=== PATIENT | male | born 1990 | race Two or more races ===

== ENCOUNTER 2019-12-13 14:33 | Emergency (ER) | payer BC ==
[2019-12-13] MEDS ORDERED: IBUPROFEN 800 MG TABLET PO ONE (14:52)
--- NOTE | 2019-12-13 15:00 | ER Document Report ---
HPI - HPI Patient complains to provider of: Achilles tendon injury Time Seen by Provider: 12/13/19 14:47 Onset: Yesterday Onset/Duration: Sudden Quality of pain: Achy Pain Level: 3 Context: Patient states he was playing basketball yesterday and felt and heard a sudden pop in the area of his Achilles tendon. Patient is concerned about possible Achilles tendon injury. Exacerbated by: Standing, Movement, Walking Relieved by: Denies Similar symptoms previously: No Recently seen / treated by doctor: No - ROS ROS below otherwise negative: Yes Systems Reviewed and Negative: Yes All other systems reviewed and negative - NEURO Neurology: DENIES: Weakness - GASTROINTESTINAL Gastrointestinal: DENIES: Nausea - MUSCULOSKELETAL Musculoskeletal: REPORTS: Extremity pain. DENIES: Swelling - DERM Skin Color: Normal Skin Problems: None Past Medical History - General Information source: Patient - Social History Smoking Status: Never Smoker Frequency of alcohol use: Occasional Drug Abuse: None Occupation: dog trainer Family History: Reviewed & Not Pertinent - Medical History Medical History: Negative Surgical Hx: Negative Vertical Provider Document - CONSTITUTIONAL Agree With Documented VS: Yes Exam Limitations: No Limitations General Appearance: WD/WN, No Apparent Distress - HEENT HEENT: Atraumatic - NECK Neck: Normal Inspection, Supple. negative: Lymphadenopathy-Left, Lymphadenopathy-Right - RESPIRATORY Respiratory: Breath Sounds Normal, No Respiratory Distress - CARDIOVASCULAR Cardiovascular: Regular Rate, Regular Rhythm Pulses: Normal: Dorsalis pedis - MUSCULOSKELETAL/EXTREMETIES Musculoskeletal/Extremeties: MAEW, Tender - Tenderness to the right posterior ankle overlying the Achilles tendon insertion point, no palpable defect appreciated, No Edema - NEURO Level of Consciousness: Awake, Alert, Appropriate Motor/Sensory: No Motor Deficit, No Sensory Deficit - DERM Integumentary: Warm, Dry, No Rash Course - Re-evaluation Re-evalutation: 12/13/19 16:47 Patient advised of partial tear to his Achilles tendon and need for orthopedic follow-up. Patient will be immobilized with placed in plantarflexion and provided with crutches. Patient verbalized understanding is agreeable with discharge plan of care. - Vital Signs Vital signs: Temp Pulse Resp BP Pulse Ox 98.1 F 72 16 151/79 H 98 12/13/19 14:37 12/13/19 14:37 12/13/19 14:37 12/13/19 14:37 12/13/19 14:37 - Diagnostic Test Radiology reviewed: Reports reviewed Procedures - Immobilization Right Ankle Pre-Proc Neuro Vasc Exam: Normal Immobilizer type: Short Leg Posterior - Plantar flexed Performed by: PCT Post-Proc Neuro Vasc Exam: Normal Alignment checked and good: Yes Discharge - Discharge Clinical Impression: Partial Achilles tendon tear Qualifiers: Encounter type: initial encounter Laterality: right Qualified Code(s): S86.011A - Strain of right Achilles tendon, initial encounter Condition: Stable Disposition: HOME, SELF-CARE Instructions: Achilles Tendon Rupture ([facility]), Use of Crutches ([facility]), Ice & Elevation ([facility]), Splint Precautions ([facility]) Additional Instructions: Return immediately for any new or worsening symptoms Followup with your primary care provider, call tomorrow to make a followup appointment Follow-up with orthopedics for further management, call their office tomorrow to make a follow-up appointment Prescriptions: Naproxen [Naprosyn 250 Nmg Tablet] 1 tab PO BID #14 tablet Forms: Return to Work Referrals: [facility] [Provider Group] - Follow up tomorrow
--- NOTE | 2019-12-13 16:40 | RADIOLOGY REPORT (SQ) ---
EXAM DESCRIPTION: U/S EXTREMITY NONVASCULAR LTD IMAGES COMPLETED DATE/TIME: 12/13/2019 3:45 pm REASON FOR STUDY: r posterior ankle pain, eval achilles tendon COMPARISON: None. TECHNIQUE: Dynamic and static grayscale images acquired of the localized site of clinical concern an d recorded on PACS. Additional selected color Doppler and spectral images recorded. SITE OF CONCERN: Right Achilles tendon. LIMITATIONS: None. FINDINGS: There is an abnormal hypoechoic appearance to the Achilles tendon consistent with a least partial rupture. Some of the anterior fibers appear intact. Affected segment approximately 3 cm in craniocaudal diameter. IMPRESSION: Partial rupture of the Achilles tendon. TECHNICAL DOCUMENTATION: JOB ID: [id number] 2010 [employer]- All Rights Reserved Reading location - IP/workstation name: [email or web address]
[2019-12-13 17:15] VITALS: BP 141/83
== END 2019-12-13 17:22 | disposition home or self-care (01) ==
LOC: ER 14:33
PROC: 2W3QX1Z Immobilization of Right Lower Leg using Splint (ICD-10-PCS; principal; 2019-12-13)
DX: S86.011A Strain of right Achilles tendon, initial encounter (principal); M79.671 Pain in right foot; M25.571 Pain in right ankle and joints of right foot; X50.1XXA Overexertion from prolonged static or awkward postures, initial encounter; Y93.67 Activity, basketball
CPT/HCPCS: 76882; 99284

== ENCOUNTER 2019-12-20 10:27 | Day surgery (SDC) | payer BC ==
[~2019-12-20 10:27] MED LIST: CEFAZOLIN 2 GM/D5W RTU 2 GM/50 ML RTUPB IV ONE
[2019-12-20] MEDS ORDERED: ROPIVACAINE HCL 0.5% INJ/PF (5 MG/1 ML) 30 ML SDV ONE (11:07)
[2019-12-20] MEDS ORDERED: FENTANYL CITRATE INJ/PF 100 MCG/2 ML AMPUL ONE ×2 (11:07→12:55)
[2019-12-20] MEDS ORDERED: MIDAZOLAM 2 MG/2 ML INJ ONE ×2 (11:07→12:55)
[2019-12-20] MEDS ORDERED: LIDOCAINE 2% INJ-PF (20 MG/ML) 10 ML AMPUL ONE ×2 (11:09→12:55)
[2019-12-20 11:14] LABS: ABSOLUTE EOSINOPHILS # (AUTO) 0.1 10^3/uL (0.0-0.6); ABSOLUTE LYMPHOCYTES (AUTO) 1.3 10^3/uL (0.5-4.7); ABSOLUTE MONOCYTES (AUTO) 0.8 10^3/uL (0.1-1.4); ABSOLUTE NEUT (AUTO) 4.2 10^3/uL (1.7-8.2); BASOPHILS % (AUTO) 0.7 % (0-2); EOSINOPHILS % (AUTO) 0.9 % (0-6); HEMATOCRIT 41.4 % (37.9-51.0); HEMOGLOBIN 14.2 g/dL (13.5-17.0); LYMPHOCYTES % (AUTO) 20.5 % (13-45); MEAN CORPUSCULAR HEMOGLOBIN 27.9 pg (27.0-33.4); MEAN CORPUSCULAR HGB CONC 34.3 g/dL (32.0-36.0); MEAN CORPUSCULAR VOLUME 81 fl (80-97); MONOCYTES % (AUTO) 11.9 % (3-13); PLATELET COUNT 198 10^3/uL (150-450); RED BLOOD COUNT 5.09 10^6/uL (4.35-5.55); RED CELL DISTRIBUTION WIDTH 13.6 % (11.5-14.0); TOTAL CELLS COUNTED % (AUTO) 100 %; WHITE BLOOD COUNT 6.4 10^3/uL (4.0-10.5)
[2019-12-20 11:35] LABS: ANION GAP 10 (5-19); BLOOD UREA NITROGEN 14 mg/dL (7-20); CALCIUM 9.1 mg/dL (8.4-10.2); CARBON DIOXIDE 27 mmol/L (22-30); CHLORIDE 100 mmol/L (98-107); GLUCOSE 95 mg/dL (75-110); POTASSIUM 4.3 mmol/L (3.6-5.0)
[2019-12-20] MEDS ORDERED: PROPOFOL INJ 200 MG/20 ML VIAL IV ONE ×3 (12:55→14:56)
[2019-12-20] MEDS ORDERED: DEXAMETHASONE SOD PHOSPHATE INJ 4 MG/1 ML VIAL ONE (13:32)
[2019-12-20] MEDS ORDERED: ONDANSETRON HCL INJ/PF 4 MG/2 ML SDV ONE (13:32)
[2019-12-20] MEDS ORDERED: OXYCODONE-ACETAMINOPHEN 5-325 MG TABLET PO PRN ×2 (14:06)
[2019-12-20] MEDS ORDERED: FENTANYL CITRATE INJ/PF 100 MCG/2 ML AMPUL IV PRN ×3 (14:06)
[2019-12-20] MEDS ORDERED: DIPHENHYDRAMINE HCL 50 MG/ML VIAL IV PRN (14:06)
[2019-12-20] MEDS ORDERED: MEPERIDINE HCL/PF INJ 25 MG/1 ML DISP.SYRIN IV PRN (14:06)
[2019-12-20] MEDS ORDERED: PROMETHAZINE HCL INJ 25 MG/1 ML VIAL IV PRN ×2 (14:06)
[2019-12-20] MEDS ORDERED: ONDANSETRON HCL INJ/PF 4 MG/2 ML SDV IV PRN (14:06)
--- NOTE | 2019-12-20 16:40 | Operative Report ---
Operative Report DATE OF SURGERY: 12/20/19 PREOPERATIVE DIAGNOSIS: Right full-thickness Achilles tendon rupture POSTOPERATIVE DIAGNOSIS: Right full-thickness Achilles tendon rupture OPERATION: Right achilles tendon repair SURGEON: MARSHA MILLAN JR ANESTHESIA: Other - Regional block COMPLICATIONS: None ESTIMATED BLOOD LOSS: 10 cc PROCEDURE: Patient was given a preoperative block to the right lower extremity. After shared numbness was achieved he was transported to the operating room. He was placed prone on the operating table and placed under moderate sedation. Upon adequate anesthesia the right lower extremity was prepped and draped sterile sterile fashion. 2 g of Ancef were provided preoperatively. The incision was marked and a timeout was performed. The right lower extremities exsanguinated with Esmarch and the tourniquet was inflated 250 cc. After this a incision was made just medial to the dorsal aspect of the Achilles. This was carefully carried down to the peritenon. The peritenon was then incised with a knife taking care to preserve it as well as possible for future repair. After this the ends of the tear were appreciated. The tear was full-thickness as was anticipated given the prior MRI. The ends of the tear were carefully manipulated in order to orient them anatomically. After doing so a #2 FiberWire suture was passed in the proximal segment in the center, and then carried down the medial aspect in a locking Krakw fashion. This was also done on the lateral aspect. This provided for strands in the proximal aspect. The same technique was used for the distal aspect. After this each of the strands was matched to its appropriate coinciding strand on the opposite side. These were then tied bringing the 2 ends together. Appropriate approximation was achieved and the ankle was then gently dorsiflexed which demonstrated a strong fixation. 0 PDS was then used in a Silverskiold type fashion across the posterior aspect of the tendon to oversew and smoothen the ruptured segment. At this point the wound was copiously irrigated with dilute Betadine solution followed by sterile saline solution. After achieving good fixation of the rupture, we turned our attention to the peritenon. With a 2-0 PDS I was able to bring the peritenon together with a running suture from proximal to distal. The wound was then irrigated again with dilute Betadine solution followed by sterile saline solution. A barbed 3-0 Monocryl was used in the sub-cutaneous tissue followed by a 3-0 nylon in the skin and a running horizontal mattress type stitch. After this a silver impregnated dressing was placed followed by a well-padded splint. The patient was then awakened from anesthesia and transferred the PACU in stable condition.
--- NOTE | 2019-12-20 16:44 | Discharge Summary ---
Discharge Summary (SDC) - Discharge Final Diagnosis: Right Achilles tendon rupture Date of Surgery: 12/20/19 Discharge Date: 12/20/19 Condition: Stable Forms: ASU Anesthesia D/C Instruction, Discharge POC-Surgical Service Treatment or Instructions: Patient was given instructions in the office. These include nonweightbearing right lower extremity for the next 10 days until seen in the office. He is to wear his splint until that time to keep it clean dry and intact. In the office we will convert him to a cam walker boot. He has been given a prescription for 1 week of p.o. antibiotics as well as oxycodone. I discussed directly the appropriate way to take pain medication and to supplement with acetaminophen 500 mg 2 tabs up to 3 times a day. Referrals: MARSHA MILLAN JR, DO [ACTIVE PROVISIONAL STAFF] - Respiratory Treatments at Home: Deep Breathing/Coughing Discharge Activity: Activity As Tolerated, No Driving, Keep Legs Elevated, No Lifting Over 10 Pounds, No tub bath Report the Following to Your Physician Immediately: Shortness of Breath, Fever over 101 Degrees, Unusual Bleeding, Drainage-Yellow
[2019-12-20 17:53] VITALS: BP 133/84
== END 2019-12-20 17:15 | disposition home or self-care (01) ==
LOC: OROUT 10:27
PROVIDERS: ATTEND Orthopaedic Surgery
DX: S86.011A Strain of right Achilles tendon, initial encounter (principal); X58.XXXA Exposure to other specified factors, initial encounter; Y93.67 Activity, basketball; M25.571 Pain in right ankle and joints of right foot; Z03.818 Encounter for observation for suspected exposure to other biological agents ruled out
CPT/HCPCS: 36415; 85025; 80048; 27650; U0003; J2795; J2250; J1100; J3010; J2405; J2704; J3490; J0690; C9803; 1470; 87635

== ENCOUNTER 2020-02-15 07:06 | Observation (INO) | payer BC ==
[~2020-02-15 07:06] MED LIST changes: -CEFAZOLIN 2 GM/D5W RTU 2 GM/50 ML RTUPB IV ONE; +CEFAZOLIN 2 GM/D5W RTU 2 GM/50 ML RTUPB IV PRN
[2020-02-15] MEDS ORDERED: CEFAZOLIN 2 GM/D5W RTU 2 GM/50 ML RTUPB IV ONE (07:29)
[2020-02-15] MEDS ORDERED: VANCOMYCIN HCL INJ 1000 MG VIAL ONE (07:53)
[2020-02-15] MEDS ORDERED: BACITRACIN INJ 50,000 UNIT VIAL ONE (07:56)
[2020-02-15] MEDS ORDERED: FENTANYL CITRATE INJ/PF 100 MCG/2 ML AMPUL ONE ×2 (08:44→10:58)
[2020-02-15] MEDS ORDERED: MIDAZOLAM 2 MG/2 ML INJ ONE (08:44)
[2020-02-15] MEDS ORDERED: LIDOCAINE 2% INJ-PF (20 MG/ML) 10 ML AMPUL ONE (08:44)
[2020-02-15] MEDS ORDERED: ONDANSETRON HCL INJ/PF 4 MG/2 ML SDV ONE (08:45)
[2020-02-15] MEDS ORDERED: DEXAMETHASONE SOD PHOSPHATE INJ 4 MG/1 ML VIAL ONE (08:45)
[2020-02-15] MEDS ORDERED: HYDROMORPHONE HCL INJ/PF 2 MG/ML AMPULE ONE (08:45)
[2020-02-15] MEDS ORDERED: PROPOFOL INJ 200 MG/20 ML VIAL IV ONE (08:45)
[2020-02-15] MEDS ORDERED: BUPIVACAINE HCL 0.5 % INJ/PF 30 ML SDV ONE (08:59)
[2020-02-15] MEDS ORDERED: PROMETHAZINE HCL INJ 25 MG/1 ML VIAL IV PRN ×2 (09:33)
[2020-02-15] MEDS ORDERED: MORPHINE SULFATE 10 MG/ML INJ IV PRN ×3 (09:33→10:59)
[2020-02-15] MEDS ORDERED: FENTANYL CITRATE INJ/PF 100 MCG/2 ML AMPUL IV PRN ×3 (09:33)
[2020-02-15] MEDS ORDERED: MEPERIDINE HCL/PF INJ 25 MG/1 ML DISP.SYRIN IV PRN (09:33)
[2020-02-15] MEDS ORDERED: DIPHENHYDRAMINE HCL 50 MG/ML VIAL IV PRN (09:33)
[2020-02-15] MEDS ORDERED: OXYCODONE-ACETAMINOPHEN 5-325 MG TABLET PO PRN ×2 (09:33)
[2020-02-15] MEDS ORDERED: OXYCODONE HCL IR 5 MG TABLET PO PRN ×3 (10:59)
[2020-02-15] MEDS ORDERED: ZOLPIDEM TARTRATE 5 MG TABLET PO PRN (10:59)
[2020-02-15] MEDS ORDERED: DOCUSATE SODIUM 100 MG CAPSULE PO PRN (10:59)
[2020-02-15] MEDS ORDERED: NORMAL SALINE 1000 ML 1,000 ML IV ONE (10:59)
[2020-02-15] MEDS ORDERED: TRAMADOL HCL 50 MG TABLET PO PRN (10:59)
[2020-02-15] MEDS ORDERED: ONDANSETRON 4 MG TAB.RAPDIS PO PRN (10:59)
[2020-02-15] MEDS ORDERED: DIPHENHYDRAMINE HCL 25 MG CAPSULE PO PRN (10:59)
--- NOTE | 2020-02-15 10:59 | Operative Report ---
Operative Report DATE OF SURGERY: 02/15/20 PREOPERATIVE DIAGNOSIS: Right Achilles tendon wound dehiscence POSTOPERATIVE DIAGNOSIS: Right Achilles tendon wound dehiscence OPERATION: Right Achilles tendon wound irrigation and debridement with application of wound VAC. SURGEON: MARSHA MILLAN JR ANESTHESIA: GA TISSUE REMOVED OR ALTERED: 2 gross specimen and swab sent for culture. COMPLICATIONS: None ESTIMATED BLOOD LOSS: 30 cc. PROCEDURE: The patient was reevaluated in the preoperative area. They had a dressing in place that they had personally put there approximately 2 days ago. Had minimal drainage and overall the wound appeared healthy with findings similar to those seen in the office however today had a relatively dry base. The patient was brought operating suite and laid supine on the operating table. Preoperatively they are provided with 2 g Ancef. Was under general anesthesia. The right lower extremities then prepped and draped in sterile fashion. An appropriate timeout was performed. The prior incision was marked. There was approximately a distal 5 mm x 10mm dry based ulceration at the distal aspect of the wound just proximal to the calcaneus. Just proximal to this wound is another small ulceration approximately 5 x 5 mm with a dry base. These were approximately 5 mm by a bridge of healed skin. An incision was made just proximal and distal to these ulcerations. This was extended slightly proximally in order to evaluate the integrity of the Achilles repair. Upon encountering healthy capillary bleeding the decision was made to proceed with tourniquet inflation. The tourniquet was inflated to 250 meters mercury. We proceeded through healthy- appearing scar tissue proximally. The tendon was nearly directly subcutaneous more distally. Overall the repair appeared to be healing well. At the distal ulceration we immediately encountered a very superficial loop of FiberWire just deep to the ulceration. This was gently retracted and traced proximally. We irrigated the wound and traced this is proximally and as aseptically as possible and resected it at its most superior aspect. We did limit our overall exposure of the sutures in order not to violate the apparent healing Achilles repair. Additionally there is no overt signs of infection, no pus, healthy appearing tissue that was bleeding well. Due to this we performed a limited exposure just to remove any easily accessible suture. Overall the wound was approximately 6 cm in length. FiberWire suture that were removed as well as some surrounding scar tissue about the ulcerations were sent for culture. The initial suture encountered was sent separately and subsequent more deeply position sutures were sent and a second cup. Upon removing the nonviable tissue that we encountered which was minimal, we thoroughly irrigated the wound with 3 L of dilute Betadine solution with Pulsavac, followed by 3 L of sterile saline solution. Following this a gram of vancomycin was placed into the wound. We were only able to achieve approximately 500 mg into the wound. The proximal and distal aspect of the wound were closed with 3-0 nylon in a trauma suture fashion. The ulcerations were then gently approximated but not completely closed. We proceeded to apply a wound VAC over this area that then measured approximately 3 x 15 mm and 4 mm deep. We applied Adaptic over this area followed by a tailored black sponge followed by the suction device. We achieved good suction in place the wound VAC on 125 mmHg continuous. After this a well-padded posterior splint was applied. The patient was then awakened from anesthesia and transferred the PACU in stable condition.
[2020-02-15] MEDS ORDERED: PANTOPRAZOLE SODIUM 20 MG TABLET.DR PO ONE (11:30)
[2020-02-15] MEDS ORDERED: OXYCODONE HCL IR 5 MG TABLET ONE (11:35)
[2020-02-15] MEDS: ACETAMINOPHEN 325 MG TABLET PO SCH ×2 (12:45→18:42)
[2020-02-15] MEDS ORDERED: CEFAZOLIN 2 GM/D5W RTU 2 GM/50 ML RTUPB IV SCH (14:00)
[2020-02-15] MEDS: CEFAZOLIN SODIUM 2 GM in DEXTROSE 5%-WATER 100 ML IV SCH ×2 (15:10→22:18)
[2020-02-16] MEDS: ACETAMINOPHEN 325 MG TABLET PO SCH ×3 (00:46→12:47)
[2020-02-16] MEDS ORDERED: SULFAMETHOXAZOLE/TRIMETHOPRIM 800-160 MG TABLET PO SCH (10:00)
[2020-02-16] MEDS ORDERED: POLYETHYLENE GLYCOL 3350 POWDER 17 GM/1 PACKET PO SCH (10:00)
[2020-02-16] MEDS ORDERED: ASPIRIN 325 MG TABLET PO SCH (10:00)
--- NOTE | 2020-02-16 11:22 | Progress Note ---
Provider Note Provider Note: [facility] ID Telephone Advice Consultation Chart reviewed, patient not examined. This is a 29-year-old man who initially presented to the orthopedics clinic on December 11 due to right foot injury while playing basketball. He had difficulty walking. When evaluated, he was found with full thickness tear of the Achilles tendon. Patient was taken to the OR on December 19 for tendon repair with Fiber wires. At the time of the surgery there were no signs of infection like erythema or drainage. After the surgery, there was a small area at the surgical site that was not healing. He developed and ulceration with an eschar above one of the fiber wires. There was no significant erythema, swelling or purulent drainage from the wound. He was taken to the OR on February 14 for removal of the eschar and removal of one of the Fiber wires adjacent to the ulceration. Patient has not had signs of infection, he has been afebrile, HD stable. Tissue cultures are in process. Allergies: No Known Allergies Allergy (Verified 02/15/20 07:31) Medications: No medications Vital Signs: Temp Pulse Resp BP Pulse Ox 97.9 F 68 16 127/65 H 100 02/16/20 10:00 02/16/20 08:03 02/16/20 08:03 02/16/20 08:03 02/16/20 08:03 Intake & Output 02/15/20 02/16/20 02/17/20 06:59 06:59 06:59 Intake Total 8729 Output Total 7109 Balance 1620 Weight 88.45 kg 93 kg Weight/Height Weight 93 kg Height 5 ft 9 in Microbiology: Tissue culture 02/15/20 In process Assessment and Recommendations: Patient with wound dehiscence in the setting of Achilles tendon injury status post repair. Overall no signs of infection, but a non healing wound could potentially be infected. Tissue cultures are in process. This don't seem to extend to deeper tissue from the repaired tendon. Will agree with empiric antibiotic therapy with Bactrim DS 1 tab bid for 14 days awaiting cultures. This should be adjusted based on culture results. If after completion of antibiotic therapy, there is recurrence of ulceration or non healing, we would have to assume residual infection associated to the retained Fiber wires that would require removal when the tendon has healed (or when feasible). In that case, would need aerobic/anaerobic, AFB and fungal cultures to better determine the etiology if infected. Please call if questions. Karina Guallpa MD [facility] ID [phone]
[2020-02-16 11:26] VITALS: BP 126/74
--- NOTE | 2020-02-16 15:54 | Progress Note ---
Provider Note Provider Note: [facility] ID Update: Tissue cultures are positive for GBS. Amoxicillin 500 mg TID recommended for 14 days as Bactrim doesn't have good Streptococcal coverage. Karina Guallpa MD [facility] ID [phone]
--- NOTE | 2020-02-17 09:35 | PDOC DISCHARGE SUMMARY ---
Impression - Admit/DC Date/PCP Admission Date/Primary Care Provider: 02/15/20 10:59 Discharge Date: 02/16/20 - Discharge Diagnosis (1) Wound dehiscence Is this a current diagnosis for this admission?: Yes - Assessment Summary: Patient was admitted for ongoing draining wounds of his right Achilles tendon repair. Surgical treatment was provided including irrigation, debridement, reapproximation of wound edges with wound VAC application. He was admitted postoperatively for potential application of a PICC line as well as IV antibiotic recommendations. infectious disease consultation was also appropriate ordered and there recommendations were followed. Upon growing Streptococcus, the patient did not nee PICC line application will be treated with p.o. amoxicillin. He was discharged on postoperative day 1 in stable condition to home with outpatient wound VAC changes scheduled. Of note unfortunately some of the cultures were canceled without my notificatio n. The cultures that grew positive for superficial wound swab rather than deep cultures. Thankfully in the operating room the wound overall appeared healthy without signs of infection. It is not unknown at this time whether deep specimens will grow in a different bacterium or anything at all however we will treat him with the current information we have given the grew strep B. He is to follow-up in my office to evaluate for further wound care and ongoing healing. That appointment has already been scheduled. He had no acute events or complications over the course of his stay. - Additional Information Resuscitation Status: Full Code Discharge Diet: As Tolerated Discharge Activity: Activity As Tolerated, Keep Legs Elevated, No tub bath, Other Referrals: [facility] [Outside] ([phone]) WOUND CARE [Outside] - 02/19/20 10:00 am MARSHA MILLAN JR, DO [ACTIVE PROVISIONAL STAFF] - 02/28/20 2:30 pm Prescriptions: Sulfamethoxazole/Trimethoprim [Septra-Ds 800-160 mg Tablet] 1 tab PO BID 14 Days tablet Home Medications: Acetaminophen [Tylenol 325 mg Tablet] 975 mg PO Q6 tablet 02/15/20 Aspirin [Aspirin 325 mg Tablet] 325 mg PO DAILY tablet 02/15/20 Cefazolin Sodium [Ancef Inj 1 gm Vial] 2 gm IV Q8 42 Days vial 02/15/20 Oxycodone HCl [Oxy-Ir 5 mg Tablet] 5 mg PO Q4HP PRN #20 tablet 02/15/20 Sulfamethoxazole/Trimethoprim [Septra-Ds 800-160 mg Tablet] 1 tab PO BID 14 Days tablet 02/16/20 History of Present Illiness History of Present Illness: SUSANNA DOLAN is a 29 year old male Physical Exam Vital Signs: Temp Pulse Resp BP Pulse Ox 97.9 F 68 16 126/74 H 100 02/16/20 11:20 02/16/20 11:20 02/16/20 11:20 02/16/20 11:20 02/16/20 11:20 Intake & Output 02/16/20 02/17/20 02/18/20 06:59 06:59 05:59 Intake Total 8729 500 Output Total 7109 900 Balance 1620 -400 Weight 93 kg Results Laboratory Results: COVID-19 Source See comment 02/13/20 08:35 COVID-19 (SARAH) Not Detected (Not Detect) 02/13/20 08:35 Plan Plan of Treatment: Patient may return to weightbearing as tolerated in a cam walker boot. Stroke Is this a Stroke Patient?: No Acute Heart Failure Is this a Heart Failure Patient?: No
== END 2020-02-16 12:30 | disposition home or self-care (01) ==
LOC: OROUT 07:06 → 4S 10:59 → OROUT 11:58 → 4S 11:58 → OROUT 11:59 → 4S 11:59 → OROUT 02-16 12:53
PROVIDERS: ADMIT Orthopaedic Surgery; ATTEND Orthopaedic Surgery
DX: T81.33XA Disruption of traumatic injury wound repair, initial encounter (principal); T81.41XA Infection following a procedure, superficial incisional surgical site, initial encounter; B95.1 Streptococcus, group B, as the cause of diseases classified elsewhere; W01.0XXA Fall on same level from slipping, tripping and stumbling without subsequent striking against object, initial encounter; L97.319 Non-pressure chronic ulcer of right ankle with unspecified severity; Z03.818 Encounter for observation for suspected exposure to other biological agents ruled out
CPT/HCPCS: 87070; 87205; 87075; 87077; 01470; 97607; 11042; G0378 ×3; U0003; J2250; J3490 ×3; J0690 ×2; J1100; J3010; J2405; J7060; J7030; J2704; J3370; C9803; 1470; 87635; J1170

== ENCOUNTER → 2020-03-11 | Outpatient (CLI) | payer BC | LOC: OD 14:57 | PROVIDERS: ATTEND Orthopaedic Surgery | DX: T81.40XD Infection following a procedure, unspecified, subsequent encounter (principal); X58.XXXD Exposure to other specified factors, subsequent encounter | CPT/HCPCS: 36415; 85652; 86140 ==